=== PATIENT | male | born 1950 | race Caucasian/White ===

== ENCOUNTER → 2016-09-08 | Outpatient (REF) | payer MEDICARE ==
[~2016-09-08] MED LIST: AMLO10TA2 PO; ASPI325T; ASPI325T PO; BUPR300T34 PO; BYETTA; CRES5TAB PO; FISH100035 PO; GLUC1000; LANTUS SC; LISI20TA5; LOSARTEN PO; LOVA1CAP17 PO; MAGN400C PO; METF500T4; METO10TA2; NOVOINJ3 SC; PRIL20CA PO; VIBR100C PO; VITA200015 PO; VITATAB11 PO; [UNRECOGNIZED DRUG - OTHER]
== END ==
LOC: M LAB REF 13:02
PROVIDERS: ATTEND Internal Medicine
DX: E78.5 Hyperlipidemia, unspecified (principal)

== ENCOUNTER → 2018-06-12 | Outpatient (CLI) | payer MEDICARE ==
[~2018-06-12] MED LIST changes: -AMLO10TA2 PO; +AMLO10TA5 PO; -FISH100035 PO; +FISH7.5C PO; +PROHANCE 279.3MG/ML 15ML VIAL (A9576) As Ordered ONE
--- NOTE | 2018-06-12 15:05 | REP ---
MRI brain without and with IV contrast: History: Sixth nerve palsy left side. No comparison brain imaging. Technique: Axial and sagittal imaging planes are utilized for T1 and T2-weighted scans. Sequences include spin-echo, fast spin echo, FLAIR, and diffusion weighted sequences. Gadolinium enhancement dose is 11 ml of intravenous ProHance. MRI findings: No bony calvarial lesion is seen. Craniocervical junction upper cervical cord are normal in appearance. There is mild generalized volume loss. Ortiz-white differentiation pattern is intact. No abnormal white matter lesion is seen. Diffusion weighted scan show no evidence to suggest acute ischemia. Postcontrast enhanced images show enhancement in normal vasculature. No abnormal gadolinium enhancement is appreciated. Impression: Mild generalized volume loss. Otherwise negative brain MRI study without and with intravenous gadolinium. Electronically Signed by Domingo Colmenares MD 06/12/2018 03:06 P
== END ==
LOC: M RAD 13:05
PROVIDERS: ATTEND Ophthalmology
DX: H49.22 Sixth [abducent] nerve palsy, left eye (principal)
CPT/HCPCS: 70553; A9576

== ENCOUNTER → 2019-01-22 | Outpatient (REF) | payer MEDICARE ==
[~2019-01-22] MED LIST changes: -PROHANCE 279.3MG/ML 15ML VIAL (A9576) As Ordered ONE
[2019-01-23 14:07] LABS: LDL DIRECT 46 mg/dL (0-99)
== END ==
LOC: M LAB REF 13:39
PROVIDERS: ATTEND Internal Medicine
DX: E78.2 Mixed hyperlipidemia (principal)

== ENCOUNTER → 2019-01-22 | Outpatient (REF) | payer MEDICARE | LOC: M LAB REF 12:23 | PROVIDERS: ATTEND Internal Medicine | DX: E11.65 Type 2 diabetes mellitus with hyperglycemia (principal); Z79.4 Long term (current) use of insulin ==

== ENCOUNTER → 2019-04-23 | Outpatient (REF) | payer MEDICARE ==
[2019-04-26 00:06] LABS: LDL DIRECT 42 mg/dL (0-99)
== END ==
LOC: M LAB REF 16:39
PROVIDERS: ATTEND Internal Medicine
DX: E78.00 Pure hypercholesterolemia, unspecified (principal)

== ENCOUNTER 2019-08-25 10:16 | Emergency (ER) | payer MEDICARE ==
[~2019-08-25] VITALS: Ht 167.6 cm; Wt 98.2 kg
[~2019-08-25 10:16] MED LIST changes: -BUPR300T34 PO; +BUPR300T92 PO
[2019-08-25 10:18] VITALS: BP 150/71
[2019-08-25] MEDS ORDERED: PERCOCET 5MG/325MG TAB PO ONE (10:45)
[2019-08-25] MEDS ORDERED: NORC1TAB7 PO (11:18)
--- NOTE | 2019-08-25 11:38 | REP ---
Pain after trauma. FINDINGS: No acute fracture or destructive osseous lesion. Electronically Signed by Evaristo Cifuentes DO 08/25/2019 01:54 P
== END 2019-08-25 11:28 | disposition home or self-care (01) ==
LOC: M ED 10:16
DX: M79.652 Pain in left thigh (principal); E11.9 Type 2 diabetes mellitus without complications; I10 Essential (primary) hypertension; E78.5 Hyperlipidemia, unspecified; F33.9 Major depressive disorder, recurrent, unspecified; K21.9 Gastro-esophageal reflux disease without esophagitis; Z79.899 Other long term (current) drug therapy; Z79.4 Long term (current) use of insulin; Z79.82 Long term (current) use of aspirin

== ENCOUNTER → 2020-12-28 | Outpatient (CLI) | payer MEDICARE ==
[~2020-12-28] MED LIST changes: -AMLO10TA5 PO; +AMLO1TAB25 PO; +NORC1TAB7 PO
--- NOTE | 2020-12-28 13:13 | REP ---
INDICATION: PAIN IN LT ANKLE. COMPARISON: None. TECHNIQUE: Routine scans were obtained FINDINGS: There is no abnormal bony signal. The tibial plafond and and talar dome are intact. The subtalar joint and the midfoot are unremarkable. The plantar fascia is not thickened. The posterior tibial tendon, flexor digitorum longus and flexor hallux longus tendons are unremarkable. The peroneus longus and brevis tendons show no abnormality. The Achilles tendon is intact. There is no abnormal soft tissue signal. The deltoid ligament is unremarkable. The anterior and posterior talofibular ligaments and the calcaneofibular ligament are intact. IMPRESSION: Negative MRI of the ankle <Electronically signed by Kane Bennett > 12/28/20 [id number]
== END ==
LOC: M RAD 09:09
PROVIDERS: ATTEND Orthopaedic Surgery
DX: M25.572 Pain in left ankle and joints of left foot (principal)

== ENCOUNTER → 2021-02-13 | Outpatient (REF) | payer MEDICARE | LOC: M LAB REF 12:13 | PROVIDERS: ATTEND Internal Medicine | DX: M10.9 Gout, unspecified (principal) ==

== ENCOUNTER → 2021-05-18 | Outpatient (REF) | payer MEDICARE | LOC: M LAB REF 16:21 | PROVIDERS: ATTEND Internal Medicine | DX: M10.9 Gout, unspecified (principal) ==

== ENCOUNTER → 2021-09-30 | Outpatient (CLI) | payer MEDICARE ==
[~2021-09-30] MED LIST changes: +ASPI325T48 PO; +CHLO125TA PO; +ECOT81TA5 PO; +ERGO500029 PO; +GABA-1171 PO; +INSUHUMDS SC; +INVO100T PO; +LOSA100T45 PO; +OMEP-173 PO; +ROSU40TA4 PO
== END ==
LOC: M LABSMTC 10:48
PROVIDERS: ATTEND Anesthesiology
DX: Z11.52 Encounter for screening for COVID-19 (principal); Z20.822 Contact with and (suspected) exposure to COVID-19

== ENCOUNTER 2021-10-05 06:08 | Day surgery (SDC) | payer MEDICARE ==
[~2021-10-05] VITALS: Ht 167.6 cm; Wt 103.3 kg
[2021-10-05] MEDS ORDERED: PROPARACAINE 0.5% OPHTH SOL 15ML OD ONE (06:35)
[2021-10-05] MEDS ORDERED: INSULIN LISPRO (NovoLOG) PER UNIT SC PRN (06:40)
[2021-10-05] MEDS ORDERED: LIDOCAINE 1% SDV 5ML VIAL As Ordered ONE (06:42)
[2021-10-05] MEDS: PHENYLEPHRINE 2.5% OPHTH SOL 2ML OD SCH (07:00)
[2021-10-05] MEDS: OFLOXACIN 0.3 % (OCUFLOX) OPTH SOL 5ML OD SCH (07:00)
[2021-10-05] MEDS: TROPICAMIDE 1% OPHTH SOLN 2ML OD SCH (07:00)
[2021-10-05] MEDS ORDERED: fentaNYL 100 MCG/2 ML INJECTION As Ordered ONE (07:06)
[2021-10-05] MEDS ORDERED: MIDAZOLAM INJ 2MG/2ML VIAL (J2250 PER 1MG) As Ordered ONE (07:06)
[2021-10-05 08:07] VITALS: BP 160/78
== END 2021-10-05 08:24 | disposition home or self-care (01) ==
LOC: M SDC 06:08
PROVIDERS: ATTEND Ophthalmology
DX: H25.11 Age-related nuclear cataract, right eye (principal); I25.10 Atherosclerotic heart disease of native coronary artery without angina pectoris; I10 Essential (primary) hypertension; E11.9 Type 2 diabetes mellitus without complications; Z79.4 Long term (current) use of insulin; K76.0 Fatty (change of) liver, not elsewhere classified; K21.9 Gastro-esophageal reflux disease without esophagitis; Z87.891 Personal history of nicotine dependence; F32.A Depression, unspecified; Z79.82 Long term (current) use of aspirin; Z79.899 Other long term (current) drug therapy
CPT/HCPCS: 66984; J1815; J2250; J3010; V2632

== ENCOUNTER → 2021-11-04 | Outpatient (CLI) | payer MEDICARE ==
[~2021-11-04] MED LIST changes: +GABA-1171
== END ==
LOC: M LABSMTC 09:44
PROVIDERS: ATTEND Anesthesiology
DX: Z11.52 Encounter for screening for COVID-19 (principal); Z20.822 Contact with and (suspected) exposure to COVID-19

== ENCOUNTER 2021-11-09 06:47 | Day surgery (SDC) | payer MEDICARE ==
[~2021-11-09] VITALS: Ht 167.6 cm; Wt 101.5 kg
[2021-11-09] MEDS ORDERED: LR 1,000 ML IV SCH (07:00)
[2021-11-09] MEDS ORDERED: LIDOCAINE 1% SDV 5ML VIAL As Ordered ONE (07:01)
[2021-11-09] MEDS: CYCLOPENTOLATE 1% OPHTH SOLN 2 ML BTL OS SCH ×2 (07:21→07:22)
[2021-11-09] MEDS: PHENYLEPHRINE 2.5% OPHTH SOL 2ML OS SCH ×2 (07:21→07:22)
[2021-11-09] MEDS: TETRACAINE 0.5% OPHTH SOLN 4ML OS SCH (07:21)
[2021-11-09] MEDS: FLURBIPROFEN 0.03% OPHTH SOLN 2.5 ML OS SCH ×2 (07:21→07:22)
[2021-11-09 09:31] VITALS: BP 136/64
[2021-11-09] MEDS ORDERED: MIDAZOLAM INJ 2MG/2ML VIAL (J2250 PER 1MG) As Ordered ONE (09:38)
[2021-11-09] MEDS ORDERED: fentaNYL 100 MCG/2 ML INJECTION As Ordered ONE (09:38)
== END 2021-11-09 09:56 | disposition home or self-care (01) ==
LOC: M SDC 06:47
PROVIDERS: ATTEND Ophthalmology
DX: H25.12 Age-related nuclear cataract, left eye (principal); I10 Essential (primary) hypertension; E11.9 Type 2 diabetes mellitus without complications; E78.5 Hyperlipidemia, unspecified; G62.9 Polyneuropathy, unspecified; K76.9 Liver disease, unspecified; Z79.899 Other long term (current) drug therapy; Z79.4 Long term (current) use of insulin; Z79.84 Long term (current) use of oral hypoglycemic drugs; Z88.8 Allergy status to other drugs, medicaments and biological substances
CPT/HCPCS: 66984; J2250; J3010; V2632

== ENCOUNTER → 2021-11-20 | Outpatient (CLI) | payer MEDICARE | LOC: M WUC 14:14 | PROVIDERS: ATTEND Physician Assistant | DX: S70.01XA Contusion of right hip, initial encounter (principal); S80.01XA Contusion of right knee, initial encounter ==

== ENCOUNTER → 2021-12-31 | Outpatient (CLI) | payer MEDICARE ==
[~2021-12-31] MED LIST changes: +FISH10005 PO; -FISH7.5C PO
== END ==
LOC: M LABSMTC 11:07
PROVIDERS: ATTEND Internal Medicine Gastroenterology
DX: Z01.812 Encounter for preprocedural laboratory examination (principal); Z11.52 Encounter for screening for COVID-19

== ENCOUNTER → 2023-04-25 | Outpatient (CLI) | payer MEDICARE ==
[~2023-04-25] MED LIST changes: -LOSA100T45 PO; +LOSA100T46 PO
[2023-04-25 14:20] LABS: CREATININE FOR GFR 1.34 MG/DL (0.70-1.30); GLOMERULAR FILTRATION RATE 55.5 (>42)
== END ==
LOC: M PLALAB 11:38
PROVIDERS: ATTEND Internal Medicine Cardiovascular Disease
DX: R06.02 Shortness of breath (principal)

== ENCOUNTER → 2023-09-19 | Outpatient (CLI) | payer MEDICARE ==
[~2023-09-19] MED LIST changes: +BUPR-597 PO; -BUPR300T92 PO; -ROSU40TA4 PO; +ROSU40TA63 PO
== END ==
LOC: M RAD 11:54
PROVIDERS: ATTEND Surgery Vascular Surgery
DX: I65.23 Occlusion and stenosis of bilateral carotid arteries (principal)

== ENCOUNTER → 2024-01-27 | Outpatient (CLI) | payer MEDICARE ==
[~2024-01-27] MED LIST changes: -ROSU40TA63 PO; +ROSU40TA81 PO
== END ==
LOC: M PLAIMG 10:22
PROVIDERS: ATTEND Internal Medicine
DX: M54.2 Cervicalgia (principal)

== ENCOUNTER → 2024-02-14 | Outpatient (CLI) | payer MEDICARE | LOC: M PLAIMG 13:15 | PROVIDERS: ATTEND Internal Medicine | DX: M25.511 Pain in right shoulder (principal); M25.512 Pain in left shoulder ==

== ENCOUNTER → 2024-05-11 | Outpatient (CLI) | payer MEDICARE | LOC: M WHC 11:21 | PROVIDERS: ATTEND Physician Assistant | DX: I65.21 Occlusion and stenosis of right carotid artery (principal) ==

== ENCOUNTER → 2024-07-17 | Outpatient (REF) | payer MEDICARE | LOC: M LAB REF 12:30 | PROVIDERS: ATTEND Internal Medicine | DX: M10.9 Gout, unspecified (principal) ==

== ENCOUNTER → 2024-07-30 | Outpatient (REF) | payer MEDICARE | LOC: M SFHCWOUN 15:41 | PROVIDERS: ATTEND Surgery | DX: E11.621 Type 2 diabetes mellitus with foot ulcer (principal); L97.512 Non-pressure chronic ulcer of other part of right foot with fat layer exposed ==

== ENCOUNTER → 2025-03-08 | Outpatient (REF) | payer MEDICARE ==
[~2025-03-08] MED LIST changes: -BUPR-597 PO; +BUPR-766 PO
[2025-03-08 16:17] LABS: HEPATITIS C VIRUS ABY INDEX 0.02 INDEX (<0.8)
== END ==
LOC: M LAB REF 14:37
PROVIDERS: ATTEND Internal Medicine
DX: K75.81 Nonalcoholic steatohepatitis (NASH) (principal); K74.02 Hepatic fibrosis, advanced fibrosis

== ENCOUNTER → 2025-03-18 | Outpatient (REF) | payer MEDICARE | LOC: M LAB REF 12:48 | PROVIDERS: ATTEND Internal Medicine | DX: L03.818 Cellulitis of other sites (principal); M19.90 Unspecified osteoarthritis, unspecified site ==

== ENCOUNTER → 2025-03-21 | Outpatient (REF) | payer MEDICARE | LOC: M LAB REF 17:32 | PROVIDERS: ATTEND Internal Medicine | DX: L03.818 Cellulitis of other sites (principal) ==

== ENCOUNTER → 2025-03-26 | Outpatient (REF) | payer MEDICARE | LOC: M LAB REF 17:10 | PROVIDERS: ATTEND Internal Medicine | DX: L03.818 Cellulitis of other sites (principal) ==

== ENCOUNTER → 2025-04-02 | Outpatient (CLI) | payer MEDICARE | LOC: M RAD 07:53 | PROVIDERS: ATTEND Internal Medicine | DX: D69.6 Thrombocytopenia, unspecified (principal); K75.81 Nonalcoholic steatohepatitis (NASH) ==